=== PATIENT | female | born 1940 | race Caucasian/White ===

== ENCOUNTER 2016-09-09 07:00 | Observation (INO) | payer MEDICARE ==
[~2016-09-09] VITALS: Ht 157.5 cm; Wt 73.1 kg
[2016-09-09] VITALS (7 sets, daily range): BP systolic 155–187; BP diastolic 78–98
[2016-09-09] MEDS ORDERED: WARF3TAB PO (07:44)
[2016-09-09] MEDS ORDERED: LISI40TA PO (07:44)
[2016-09-09] MEDS ORDERED: METO25TA35 PO (07:44)
[2016-09-09] MEDS ORDERED: WARF1TAB PO (07:44)
[2016-09-09] MEDS ORDERED: CHOL20002 PO (07:45)
[2016-09-09 08:18] LABS: ASPARTATE AMINO TRANSFERASE 20 U/L (15-37); BLOOD UREA NITROGEN 22 mg/dL (7-18)
[2016-09-09 08:25] LABS: IS PT STATUS REG ER OR PRE ER? YES
[2016-09-09] MEDS ORDERED: SODIUM CHLORIDE FLUSH 10ML SYR IVF PRN (10:00)
[2016-09-09] MEDS ORDERED: ACETAMINOPHEN 325 MG TABLET PO PRN (13:00)
[2016-09-09] MEDS ORDERED: DOCUSATE 100 MG CAPSULE PO PRN (13:00)
[2016-09-09] MEDS ORDERED: TRAZODONE 50MG TABLET PO PRN (13:00)
[2016-09-09] MEDS ORDERED: ONDANSETRON ODT 4 MG PO PRN (13:00)
[2016-09-09] MEDS ORDERED: HYDROcodone/APAP 5/325 TABLET PO PRN (13:00)
[2016-09-09 14:42] LABS: IS PT STATUS REG ER OR PRE ER? NO
[2016-09-09] MEDS: ENALAPRILAT 1.25 MG/ML, 2ML IVPush PRN ×3 (15:35→22:05)
[2016-09-09] MEDS ORDERED: METOPROLOL TARTRATE 25 MG TABLET PO ONE (18:00)
[2016-09-09 19:26] LABS: IS PT STATUS REG ER OR PRE ER? NO
[2016-09-09] MEDS: LISINOPRIL 20 MG TABLET PO SCH (21:18)
[2016-09-10] MEDS ORDERED: hydrALAzine 20 MG/ML, 1ML IV ONE
[2016-09-10 01:22] VITALS: BP 196/91
[2016-09-10] MEDS ORDERED: NITROGLYCERIN 0.4 MG BOTTLE (25 TABS) SL ONE (01:50)
[2016-09-10 01:52] VITALS: BP 178/86
[2016-09-10 02:00] VITALS: BP 132/77
[2016-09-10] MEDS ORDERED: NITROGLYCERIN SINGLE TAB 0.4 MG SL PRN (02:00)
[2016-09-10 06:38] VITALS: BP 166/90
[2016-09-10 07:29] VITALS: BP 170/88
[2016-09-10] MEDS ORDERED: METOPROLOL TARTRATE 25 MG TABLET PO SCH (08:00)
[2016-09-10] MEDS: LISINOPRIL 20 MG TABLET PO SCH (08:07)
[2016-09-10] MEDS ORDERED: REGADENOSON 0.4 MG/5 ML SYRINGE ONE (08:20)
[2016-09-10] MEDS ORDERED: CHOLECALCIFEROL 1,000 UNIT TABLET PO SCH (09:00)
[2016-09-10 12:22] VITALS: BP 170/80
[2016-09-10] MEDS ORDERED: METOPROLOL TARTRATE 25 MG TABLET PO ONE (14:30)
== END 2016-09-10 15:03 | disposition home or self-care (01) ==
LOC: ED 08:21 → EDIP 09:42 → INTOOBSV 09:42 → 5SO 11:09
PROVIDERS: ADMIT Internal Medicine; ATTEND Internal Medicine
DX: I16.0 Hypertensive urgency (principal); I10 Essential (primary) hypertension; I47.1 Supraventricular tachycardia; Z86.73 Personal history of transient ischemic attack (TIA), and cerebral infarction without residual deficits; Z85.3 Personal history of malignant neoplasm of breast; Z79.01 Long term (current) use of anticoagulants; Z95.2 Presence of prosthetic heart valve
CPT/HCPCS: 36415; 70450; 78452; 80053; 84484; 85025; 85610; 93005; 93017; 96374; 96375; 96376; 99285; A9502; C9898; G0378; J0360; J2785